=== PATIENT | male | born 1995 | race African-American/Black ===

== ENCOUNTER 2019-12-21 18:46 | Inpatient (IN) | payer SELFPAY ==
[~2019-12-21] VITALS: Ht 175.3 cm; Wt 98.4 kg
[~2019-12-21 18:46] MED LIST: Lidocaine 1% 10mg/ml/Epi 0.005mg/ml 30ml vial INJ ONE
--- NOTE | 2019-12-21 18:50 | NUR ---
ED Nurse Note: Pt brought in by ambulance from home and came in due to suicidal behavior with agitation. Per EMS, pt attempted to jump of from second floor story window. Patient cut his right forearm on the glass door and sutained a deep cut laceration on right forearm. Hx of depression. IM [id number] given by EMS. Pt came in very agitated and unable to follow commands. No respiratory distress. ERMD at the bed side.
[2019-12-21] MEDS ORDERED: Lidocaine 1% 10mg/ml/Epi 0.005mg/ml 30ml vial INJ ONE (18:56)
[2019-12-21 19:00] VITALS: BP 118/86
--- NOTE | 2019-12-21 19:13 | NUR ---
HAND-OFF: Report given to Mary Kate SIMMS.
[2019-12-21] MEDS ORDERED: Tetanus/Diptheria/Pertussis IM ONE (19:15)
[2019-12-21] MEDS ORDERED: ceFAZolin sod 1 GM in NS 55 ML IVPB ONE (19:15)
[2019-12-21 19:17] VITALS: BP 107/59
--- NOTE | 2019-12-21 20:28 | Diagnostic Imaging Report ---
ADDENDUM - Added by Kash Roberts DO on 12/21/2019 8:31 PM (-07:00) Addendum: Findings discussed forearm injury. 1. No radiopaque foreign body of the chest. 2. Increased airspace opacity of the upper lobes. This may be due to portable technique. Recommend dedicated frontal and lateral radiographs. EXAM: XR Chest, 1 View CLINICAL HISTORY: FB TECHNIQUE: Frontal view of the chest. COMPARISON: None available. FINDINGS: Lungs: Unremarkable. No consolidation. Pleural space: Unremarkable. No pneumothorax. Heart: Unremarkable. No cardiomegaly. Mediastinum: Unremarkable. Bones/joints: Unremarkable. Soft tissues: Soft tissue laceration overlying the dorsal mid forearm. There is cortical irregularity along the dorsal ulna at this location. There is no radiopaque foreign body. IMPRESSION: 1. Soft tissue laceration of the dorsal forearm with mild ulnar osseous cortical irregularity. 2. No radiopaque foreign body.
--- NOTE | 2019-12-21 20:33 | Diagnostic Imaging Report ---
EXAM: XR Right Forearm, 2 Views CLINICAL HISTORY: FB TECHNIQUE: Frontal and lateral views of the right forearm. COMPARISON: None. FINDINGS: Bones/joints: There is cortical irregularity along the dorsal ulna at this location. No dislocation. Soft tissues: Soft tissue laceration overlying the dorsal mid forearm. There is no radiopaque foreign body. IMPRESSION: 1. Soft tissue laceration of the dorsal forearm with subtle cortical irregularity of the adjacent ulnar cortex. 2. No radiopaque foreign body.
[2019-12-21 20:53] LABS: ANION GAP 12 mmol/L (5-15); BLOOD UREA NITROGEN 11 mg/dL (7-18); CARBON DIOXIDE 26 MMOL/L (21-32); CHLORIDE 105 MMOL/L (98-107); CREATININE 0.9 MG/DL (0.55-1.30); POTASSIUM 3.9 MMOL/L (3.5-5.1); SODIUM 143 MMOL/L (136-145)
[2019-12-21 20:57] LABS: ALANINE AMINOTRANSFERASE 25 U/L (12-78); ALBUMIN 3.6 G/DL (3.4-5.0); ALBUMIN/GLOBULIN RATIO 0.9 (1.0-2.7); ALKALINE PHOSPHATASE 54 U/L (46-116); ASPARTATE AMINO TRANSFERASE 25 U/L (15-37); BILIRUBIN,TOTAL 0.5 MG/DL (0.2-1.0); CREATINE KINASE 377 U/L (26-308)
[2019-12-21 21:00] LABS: HEMATOCRIT 42.4 % (42.0-52.0); MEAN CORPUSCULAR VOLUME 89 FL (80-99); PLATELET COUNT 232 K/UL (150-450); RED BLOOD COUNT 4.76 M/UL (4.70-6.10); RED CELL DISTRIBUTION WIDTH 13.6 % (11.6-14.8)
--- NOTE | 2019-12-21 21:00 | NUR ---
ED Nurse Note: Patient remains completely combative. Patient DC'd Iv at right hand. Will continue to monitor for restart.
[2019-12-21 21:03] LABS: WHITE BLOOD COUNT 19.9 K/UL (4.8-10.8)
[2019-12-21 21:04] LABS: BASOPHILS % (AUTO) 0.7 % (0.0-2.0); EOSINOPHILS % (AUTO) 0.4 % (0.0-3.0); LYMPHOCYTES % (AUTO) 6.5 % (20.0-45.0); MONOCYTES % (AUTO) 3.7 % (1.0-10.0); NEUTROPHILS % (AUTO) 88.8 % (45.0-75.0)
[2019-12-21] MEDS ORDERED: Haloperidol 5mg/ml Inj IM ONE (21:30)
[2019-12-21] MEDS ORDERED: LORazepam Inj 2mg/ml 1ml IM ONE (21:45)
[2019-12-21] MEDS ORDERED: DiphenhydrAMINE 50mg/ml Inj IM ONE (21:45)
--- NOTE | 2019-12-21 21:45 | NUR ---
ED Nurse Note: Patient completely uncooperative. Security called for assistance. Patient vebally threatened to hurt me and lunged at me during attempted IV start. ERMD informed of need for pharmaceutical restraints in effort to resume IV fluid hydration and repair of self inflicted damage.
--- NOTE | 2019-12-21 22:10 | NUR ---
ED Nurse Note: Security called to assist with medication administration. Patient mildly compliant for injections. Will continue to monitor level of consciousness for continuity of care.
[2019-12-21 22:16] VITALS: BP 110/62
[2019-12-21 23:12] LABS: APPEARANCE,URINE CLEAR; BILIRUBIN, URINE NEGATIVE (NEGATIVE); COLOR,URINE AMBER; GLUCOSE, URINE (UA) NEGATIVE (NEGATIVE); KETONES,URINE NEGATIVE (NEGATIVE); LEUKOCYTE ESTERASE ,URINE 1+ (NEGATIVE); NITRITE,URINE NEGATIVE (NEGATIVE); PH,URINE 5 (4.5-8.0); PROTEIN,URINE NEGATIVE (NEGATIVE); UROBILINOGEN,URINE NORMAL MG/DL (0.0-1.0)
--- NOTE | 2019-12-21 23:34 | NUR ---
ED Nurse Note: ERMd at bedside, for repair of patient's right forearm.
[2019-12-21 23:45] VITALS: BP 107/59
[2019-12-21] MEDS ORDERED: Bacitracin Oint UD TOPIC ONE (23:45)
--- NOTE | 2019-12-21 23:54 | NUR ---
ED Nurse Note: Rendered call back to patient's mom regarding patient's status and plan of care. Patient's mom is Tomasa and can be reached at [phone] for updates.
[2019-12-22] VITALS (7 sets, daily range): BP systolic 11–125; BP diastolic 62–72
--- NOTE | 2019-12-22 00:15 | NUR ---
ED Nurse Note: Bacitracin applied to sutured area and area wrapped with loose coban.
--- NOTE | 2019-12-22 00:24 | Emergency Room Report ---
History of Present Illness General Chief Complaint: Suicidal Source: Family Member, EMS Present Illness HPI The patient presents via EMS. Apparently he was going to jump out of a second story window to end his life however he cut his right forearm on the glass and did not jump. He was agitated and violent with paramedics so they restrained him police was involved and also they gave him 10 of Versed. Police are placing him on a 5150. His mom states that he has no prior psychiatric history but there is a family history of schizophrenia. Recently he has been acting more like his sister with schizophrenia. His birthday was yesterday and he drank alcohol and apparently did some marijuana. Tonight he threatened to take his girlfriend's Prozac but took a handful and then spat them all out. He then threatened to jump out of the second story window but ended up cutting his right forearm on broken glass. She states his hand could not straighten after the laceration. The patient is unable to answer questions at this time. 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[place] - has girlfriend Reviewed Nursing Documentation: PMH: Agreed; PSxH: Agreed Nursing Documentation-[facility] Past Medical History: No History, Except For History Of Psychiatric Problem: Yes - depression Review of Systems All Other Systems: limited Physical Exam Vital Signs Date Time Temp Pulse Resp B/P (MAP) Pulse Ox O2 Delivery O2 Flow Rate FiO2 12/21/19 18:40 99.0 120 14 107/59 (75) 95 Room Air Sp02 EP Interpretation: reviewed, abnormal - interpreted as slightly low General Appearance: non-toxic, lethargic - And intermittently striking out Head: normocephalic, atraumatic Eyes: bilateral eye PERRL, bilateral eye Scleral Injection ENT: moist mucus membranes Neck: full range of motion, supple Respiratory: lungs clear, normal breath sounds Cardiovascular #1: tachycardia Cardiovascular #2: 2+ radial (R) - good capillary fill Gastrointestinal: normal inspection, scaphoid Musculoskeletal: back normal, normal range of motion - except unable to raise right hand Neurologic: sensory intact, motor weakness - Right hand, responsive - to pain, protecting airway Psychiatric: other - alternating agitated and lethargic Skin: warm/dry, laceration - right dorsal forearm, deep Procedures Critical Care Time Critical Care Time Total Critical Care Time: 60 min bedside evaluation and treatment excludes procedures (EKG, laceration repair). Reason for critical care: Agitated delirium, limb threatening wound assessment for restraints, reassessment for sedation, consultation with hand specialist. Possible complications: hypotension, hypertension, NC, shock, arrhythmias, metabolic acidosis, end organ damage, respiratory failure. Interventions: Sedation, repeat evaluations, discussion with family, discussion with hand specialist, laceration repair Course: Patient brought by EMS and [employer] post suicide attempt with a right forearm laceration and agitated delirium. Immediate assessment for violent restraints. Wound bleeding controlled. Reassessment as patient with increased agitation and threatening staff. Sedation ordered. Reassessment post sedation. Discussion with family regarding history. Discussion with hand surgeon and general surgeon regarding wound. Ancef begun. Laceration irrigated and skin closed as a temporary measure. Patient admitted to the hospital for operative repair of right forearm injury and reassessment of suicidal gesture. Consultations: nursing staff, EMS, family, hand surgeon, security, admitting physician Performed by: Dr. Zee Tolerated well condition = serious Laceration/Wound Repair Laceration/Wound Repair : Consent: Emergent Wound Location: upper extremity Wound's Depth, Shape: into muscle, linear Wound Explored: clean Betadine Prep?: Yes Anesthesia: Lidocaine w/ Epi Wound Debrided: None Wound Repaired With: sutures Suture Size/Type: 3:0 Layer Closure?: No Sterile Dressing Applied?: Yes Splint Applied?: No Patient Tolerated: Well Complications: None Medical Decision Making Medical: Substance Abuse Behavioral: Other Reaction to Intervention: Escalated Behavior Restraint Reassesment I, Jesus Zee MD, have personally evaluated this patient. Laboratory tests have been reviewed and addressed accordingly. The patient is deemed to present a danger to themselves and/or others. This is based on the exam, history provided by EMS and [employer] and family and observed and reported behavior. Attempts for non-invasive measures have been considered and/or attempted, however, have been futile. It is in the best interest of the nursing staff, the patient, and others involved in this patient's care that behavioral restraints be applied. Patient evaluation reveals the following: Initially was started but then agitated, abusive but threatening to staff Diagnostic Impression: Primary Impression: Suicidal intent Additional Impressions: Laceration of forearm with tendon involvement Qualified Codes: S51.811A - Laceration without foreign body of right forearm, initial encounter; S56.921A - Laceration of unspecified muscles, fascia and tendons at forearm level, right arm, initial encounter Substance abuse ER Course Patient presents after suicide attempt with a laceration to the right forearm and after receiving 10 mg of Versed for agitated state. Differential includes acute intoxication, initial presentation of schizophrenia, suicidal gesture, forearm laceration with muscle and tendon involvement. Evaluation with chest x- ray, right forearm film and labs. Immediately the wound was assessed and lidocaine with epinephrine was infused after Betadine prep and bleeding was controlled with pressure. Patient threatening staff with violence and violent restraints applied. Ancef given. Patient threatening nursing staff and verbally abusive not responding to efforts to de-escalate. This is while he was restrained. Sedation increased. Dr. Oneil states will take patient to the operating room in the morning to repair tendons and muscles of the right forearm. He requested that I close the skin after irrigating the wound. See procedure note. After sedation patient more calm, and cooperative. Patient admitted to the hospital for operative repair of right forearm laceration. Laboratory Tests Test 12/21/19 20:20 12/21/19 23:00 White Blood Count 19.9 K/UL (4.8-10.8) H Red Blood Count 4.76 M/UL (4.70-6.10) Hemoglobin 14.0 G/DL (14.2-18.0) L Hematocrit 42.4 % (42.0-52.0) Mean Corpuscular Volume 89 FL (80-99) Mean Corpuscular Hemoglobin 29.4 PG (27.0-31.0) Mean Corpuscular Hemoglobin Concent 33.1 G/DL (32.0-36.0) Red Cell Distribution Width 13.6 % (11.6-14.8) Platelet Count 232 K/UL (150-450) Mean Platelet Volume 7.2 FL (6.5-10.1) Neutrophils (%) (Auto) 88.8 % (45.0-75.0) H Lymphocytes (%) (Auto) 6.5 % (20.0-45.0) L Monocytes (%) (Auto) 3.7 % (1.0-10.0) Eosinophils (%) (Auto) 0.4 % (0.0-3.0) Basophils (%) (Auto) 0.7 % (0.0-2.0) Sodium Level 143 MMOL/L (136-145) Potassium Level 3.9 MMOL/L (3.5-5.1) Chloride Level 105 MMOL/L (98-107) Carbon Dioxide Level 26 MMOL/L (21-32) Anion Gap 12 mmol/L (5-15) Blood Urea Nitrogen 11 mg/dL (7-18) Creatinine 0.9 MG/DL (0.55-1.30) Estimated Glomerular Filtration Rate > 60 mL/min (>60) Glucose Level 103 MG/DL (74-106) Calcium Level 9.0 MG/DL (8.5-10.1) Total Bilirubin 0.5 MG/DL (0.2-1.0) Aspartate Amino Transferase (AST) 25 U/L (15-37) Alanine Aminotransferase (ALT) 25 U/L (12-78) Alkaline Phosphatase 54 U/L (46-116) Total Creatine Kinase 377 U/L (26-308) H Total Protein 7.5 G/DL (6.4-8.2) Albumin 3.6 G/DL (3.4-5.0) Globulin 3.9 g/dL Albumin/Globulin Ratio 0.9 (1.0-2.7) L Salicylates Level 2.5 ug/mL (2.8-20) L Acetaminophen Level < 2 MCG/ML (10-30) L Serum Alcohol 214 mg/dL Urine Color Vivienne Urine Appearance Clear Urine pH 5 (4.5-8.0) Urine Specific [place] 1.025 (1.005-1.035) Urine Protein Negative (NEGATIVE) Urine Glucose (UA) Negative (NEGATIVE) Urine Ketones Negative (NEGATIVE) Urine Blood Negative (NEGATIVE) Urine Nitrite Negative (NEGATIVE) Urine Bilirubin Negative (NEGATIVE) Urine Ictotest Negative (NEGATIVE) Urine Urobilinogen Normal MG/DL (0.0-1.0) Urine Leukocyte Esterase 1+ (NEGATIVE) H Urine RBC 0 /HPF (0 - 0) Urine WBC 5-10 /HPF (0 - 0) H Urine Squamous Epithelial Cells Occasional /LPF Urine Bacteria Few /HPF (NONE) Urine Mucus Few /LPF (NONE/OCC) H Urine Opiates Screen Negative (NEGATIVE) Urine Barbiturates Screen Negative (NEGATIVE) Phencyclidine (PCP) Screen Negative (NEGATIVE) Urine Amphetamines Screen Negative (NEGATIVE) Urine Benzodiazepines Screen Positive (NEGATIVE) H Urine Cocaine Screen Negative (NEGATIVE) Urine Marijuana (THC) Screen Positive (NEGATIVE) H Microbiology Date/Time Source Procedure Growth Status 12/21/19 20:30 Nasopharynx SARS-CoV-2 RdRp Gene Assay - Final Complete Chest X-Ray Diagnostic Results Chest X-Ray Diagnostic Results : Chest X-Ray Ordered: Yes # of Views/Limited/Complete: 1 View Indication: Other EP Interpretation: Yes Interpretation: no consolidation, no effusion, no pneumothorax Impression: No acute disease Electronically Signed by: Electronically signed by Jesus Zee MD Other X-Ray Diagnostic Results Other X-Ray Diagnostic Results : X-Ray ordered: R forearm # of Views/Limited Vs Complete: 2 View Indication: Other EP Interpretation: Yes Interpretation: no dislocation, no soft tissue swelling, no fractures, other - ST defect no foregn bodies Impression: Other Electronically Signed by: Electronically signed by Jesus Zee MD Last Vital Signs Date Time Temp Pulse Resp B/P (MAP) Pulse Ox O2 Delivery O2 Flow Rate FiO2 12/21/19 22:20 120 14 107/59 95 12/21/19 19:17 99.0 Room Air Status: improved Disposition: ADMITTED INPATIENT Condition: Serious Scripts Unable to Obtain Active Prescriptions or Reported Meds Referrals: NOT CHOSEN IPA/,REFERRING (PCP) Jesus Zee MD Dec 22, 2019 00:24
--- NOTE | 2019-12-22 00:55 | NUR ---
ED Nurse Note: Patient sleeping soundly, provided with warm blankets. Will continue to monitor.
--- NOTE | 2019-12-22 01:55 | NUR ---
ED Nurse Note: Patient sleeping soundly with no s/s of acute distress. Will continue to monitor.
--- NOTE | 2019-12-22 03:05 | NUR ---
ED Nurse Note: Patient sleeping soundly, vital sign updated.
--- NOTE | 2019-12-22 04:05 | NUR ---
ED Nurse Note: Patient remains asleep with no s/s of acute distress. Will continue to monitor for wakefulness.
--- NOTE | 2019-12-22 05:05 | NUR ---
ED Nurse Note: Patient is awake, alert, oriented and cooperative. Patient able to ambulate to the restroom to clean himself up. Patient provided with clean gown and clean bedding. Patient also provided with warm blankets. Will continue to monitor.
--- NOTE | 2019-12-22 07:00 | NUR ---
HAND-OFF: Report given to Sherie SIMMS. Patient vital signs updated. Patient is full cooperative with no s/s of aggression.
--- NOTE | 2019-12-22 07:11 | NUR ---
ED Nurse Note: Report received from MENDEZ Hartmann. Pt is lying comfortably in semi-fowlers with no signs of distress. A+Ox4, calm and cooperative. Respirations even and unlabored on room air. All vitals stable as documented. Pt to be transferred to after 0730. Denies SI/HI at this time.
--- NOTE | 2019-12-22 07:51 | NUR ---
ED Nurse Note: Report given to MENDEZ Sainz on 3E
--- NOTE | 2019-12-22 08:05 | NUR ---
ED Nurse Note: Pt transferred safely to 3E.
--- NOTE | 2019-12-22 08:15 | NUR ---
NURSE NOTES: Received report from Sherie SIMMS, pt a/a/o x4 laying in bed with no signs of distress or other issues at this time. pt has a laceration in the right hand covered with 4x4 and Tegaderm. per report ER MD suture wound. IV on the right FA gauge #20 running NS @75ml/hr. RN will contact MD to get admission orders and will carry on as indicated. call light within reach, bed in lowest position, side rales up x2. I will f/u as needed. - Seated in place due to previous suicidal attempt, pt stated that doesn't thought of hurting him self or other at this time.
[2019-12-22] MEDS ORDERED: HYDROcodone/Acetamin 5/325 tab ORAL PRN (09:30)
[2019-12-22] MEDS ORDERED: LORazepam 1mg tab ORAL PRN (09:30)
--- NOTE | 2019-12-22 09:40 | History and Physical ---
History of Present Illness General Date patient seen: Dec 22, 2019 Time patient seen: 07:20 Reason for Hospitalization: SuicidalLaceration of the upper extremity Present Illness HPI Patient is a 24 YO M with no PMHx presenting with R. forearm laceration after attempting to suicide. Pt reluctant to talk about the incident ; however reportedly he was going to jump out of a second story window to ended his life but he cut his right forearm on the glass and did not jump. Patient denies an prior hx of suicidal attempts. Pt endorses use of Marijuana but no other illicit. He complains of pain and mild burning sensation in the dorsum of his right hand. He also complains of difficulty making a fist but denies any paraesthesia or tingling. Denies any CP, SOB, N/V/D/F or chills. On arrival to the ED, patient was found to be agitated and threatening the medical staff. He has been placed on 5150 and admitted for further medical/ surgical management. Allergies: Coded Allergies: No Known Allergies (Unverified , 12/21/19) COVID-19 Screening Contact w/high risk pt: No Experienced COVID-19 symptoms?: No Medication History Unable to Obtain Active Prescriptions or Reported Meds Patient History Healthcare decision maker Resuscitation status Advanced Directive on File Review of Systems All Other Systems: negative except mentioned in HPI Physical Exam General Appearance: no apparent distress, alert Lines, tubes and drains: peripheral HEENT: normocephalic, atraumatic Neck: non-tender, normal inspection Respiratory/Chest: chest wall non-tender, lungs clear, no accessory muscle use Cardiovascular/Chest: normal peripheral pulses, normal rate, regular rhythm Abdomen: normal bowel sounds, soft, no organomegaly Extremities: other - Right hand dressing intact, clearn and dry. pulses intact ; physical exam negative for loss of sensation to the right hand. Limited ROM of the right hand due to pain. Skin Exam: normal pigmentation Neurologic: oriented x 3 Last 24 Hour Vital Signs Date Time Temp Pulse Resp B/P (MAP) Pulse Ox O2 Delivery O2 Flow Rate FiO2 12/22/19 08:05 98.1 68 18 124/72 97 Room Air 12/22/19 07:01 98.4 60 17 118/68 96 Room Air 12/22/19 05:05 99.0 86 15 111/72 98 Room Air 12/22/19 03:05 99.0 87 16 110/65 97 Room Air 12/22/19 00:45 98.7 83 16 108/63 96 Room Air 12/22/19 00:30 97 18 96 Room Air 12/22/19 00:15 95 16 96 Room Air 12/21/19 23:45 120 14 95 Room Air 12/21/19 22:20 120 14 107/59 95 12/21/19 22:16 99.0 86 17 110/62 98 Room Air 12/21/19 21:50 120 14 107/59 95 12/21/19 19:17 99.0 14 107/59 95 Room Air 12/21/19 19:00 90 20 98 Room Air 12/21/19 18:50 120 14 Room Air 12/21/19 18:40 99.0 120 14 107/59 (75) 95 Room Air Intake and Output 12/21/19 12/22/19 19:00 07:00 Intake Total 0 ml Balance 0 ml Intake Oral 0 ml Laboratory Tests Test 12/21/19 20:20 12/21/19 23:00 White Blood Count 19.9 K/UL (4.8-10.8) H Red Blood Count 4.76 M/UL (4.70-6.10) Hemoglobin 14.0 G/DL (14.2-18.0) L Hematocrit 42.4 % (42.0-52.0) Mean Corpuscular Volume 89 FL (80-99) Mean Corpuscular Hemoglobin 29.4 PG (27.0-31.0) Mean Corpuscular Hemoglobin Concent 33.1 G/DL (32.0-36.0) Red Cell Distribution Width 13.6 % (11.6-14.8) Platelet Count 232 K/UL (150-450) Mean Platelet Volume 7.2 FL (6.5-10.1) Neutrophils (%) (Auto) 88.8 % (45.0-75.0) H Lymphocytes (%) (Auto) 6.5 % (20.0-45.0) L Monocytes (%) (Auto) 3.7 % (1.0-10.0) Eosinophils (%) (Auto) 0.4 % (0.0-3.0) Basophils (%) (Auto) 0.7 % (0.0-2.0) Sodium Level 143 MMOL/L (136-145) Potassium Level 3.9 MMOL/L (3.5-5.1) Chloride Level 105 MMOL/L (98-107) Carbon Dioxide Level 26 MMOL/L (21-32) Anion Gap 12 mmol/L (5-15) Blood Urea Nitrogen 11 mg/dL (7-18) Creatinine 0.9 MG/DL (0.55-1.30) Estimat Glomerular Filtration Rate > 60 mL/min (>60) Glucose Level 103 MG/DL (74-106) Calcium Level 9.0 MG/DL (8.5-10.1) Total Bilirubin 0.5 MG/DL (0.2-1.0) Aspartate Amino Transf (AST/SGOT) 25 U/L (15-37) Alanine Aminotransferase (ALT/SGPT) 25 U/L (12-78) Alkaline Phosphatase 54 U/L (46-116) Total Creatine Kinase 377 U/L (26-308) H Total Protein 7.5 G/DL (6.4-8.2) Albumin 3.6 G/DL (3.4-5.0) Globulin 3.9 g/dL Albumin/Globulin Ratio 0.9 (1.0-2.7) L Salicylates Level 2.5 ug/mL (2.8-20) L Acetaminophen Level < 2 MCG/ML (10-30) L Serum Alcohol 214 mg/dL Urine Color Vivienne Urine Appearance Clear Urine pH 5 (4.5-8.0) Urine Specific [place] 1.025 (1.005-1.035) Urine Protein Negative (NEGATIVE) Urine Glucose (UA) Negative (NEGATIVE) Urine Ketones Negative (NEGATIVE) Urine Blood Negative (NEGATIVE) Urine Nitrite Negative (NEGATIVE) Urine Bilirubin Negative (NEGATIVE) Urine Ictotest Negative (NEGATIVE) Urine Urobilinogen Normal MG/DL (0.0-1.0) Urine Leukocyte Esterase 1+ (NEGATIVE) H Urine RBC 0 /HPF (0 - 0) Urine WBC 5-10 /HPF (0 - 0) H Urine Squamous Epithelial Cells Occasional /LPF Urine Bacteria Few /HPF (NONE) Urine Mucus Few /LPF (NONE/OCC) H Urine Opiates Screen Negative (NEGATIVE) Urine Barbiturates Screen Negative (NEGATIVE) Phencyclidine (PCP) Screen Negative (NEGATIVE) Urine Amphetamines Screen Negative (NEGATIVE) Urine Benzodiazepines Screen Positive (NEGATIVE) H Urine Cocaine Screen Negative (NEGATIVE) Urine Marijuana (THC) Screen Positive (NEGATIVE) H Microbiology Date/Time Source Procedure Growth Status 12/21/19 20:30 Nasopharynx SARS-CoV-2 RdRp Gene Assay - Final Complete Height (Feet): 6 Weight (Pounds): 220 Medications Current Medications Medications (Trade) Dose Ordered Sig/Sary Route PRN Reason Start Time Stop Time Status Last Admin Dose Admin Nicotine (Nicoderm) 1 patch Q24H TDERMAL 12/22/19 10:00 03/21/20 09:59 Sodium Chloride 1,000 ml @ 300 mls/hr Q3H20M IV 12/21/19 19:15 01/20/20 19:14 12/22/19 05:31 Sodium Chloride 1,000 ml @ 300 mls/hr Q3H20M IV 12/21/19 23:45 01/20/20 23:44 12/22/19 06:25 Assessment/Plan Assessment/Plan: 24 YO M with no prior medical medical hx presenting with laceration to the right hand after cutting his right forearm on a glass in a suicidal attempt. Laceration of R. Forearm with tendon involvement: -s/p suture in the ED. -TdaP vaccination. -continue with current wound care. -PRN PO analgesics for pain control -Keep NPO except sips with meds -Avoid antithrombotics. -Dr. Oneil consulted by the ED - Possible operative managemetn. Apprecicate the follow up. -Keflex 1G IV One hour prior to OR. Suicidal Intent: Polysubstance abuse -Currently on 5150 -Sitter at the bedside. -Utox + for benzo and Marijuana -Psych consult. Appreciate further input. Leukocytosis -likely reactive to the trauma -No signs of infection. -follow wound cultures. -Continue to trend Vijay Almonte MD. [facility]. Vijay Almonte M.D. Dec 22, 2019 09:40
--- NOTE | 2019-12-22 10:31 | NUR ---
[employer]OL[employer] PROFESSIONAL NOTE SW received psych/suicide attempt consult. SW met w/ pt and assessed pt. Pt presents as A&O4x and cooperative. Pt reports he heavily drank hard liquor w/ his girlfriend that he does not recall if he stated that he wanted to jump off from the second floor. Pt currently denies SI. Pt denies having hx of SI. RUDS positive for Benzo and THC. Pt admits THC abuse. PT declined counseling/tx intervention/resource on substance abuse. Pt has hx of Depression and he does not receive outpatient tx. Pt does not consider outpatient mental health service at this time. PT also declined mental health resource. PT verbalized he will be safe when returning to the community. This SW believes pt is not danger to self. No concern/needs expressed by pt. Addendum: 12/22/19 at 1049 by JOHN BRYANT Emergency contact: Tomasa Knowles (mother) [phone]
--- NOTE | 2019-12-22 15:33 | NUR ---
CASE MANAGEMENT:INITIAL REVIEW 24 YR OLD MALE BIBA FROM HOME CC;SUICIDAL INTENT. SI;SUICIDAL INTENT. SUBSTANCE ABUSE. LACERATION OF FOREARM WITH TENDON INVOLVEMENT 99.0 120 20 107/59 95% ON RA WBC 19.9 TCK 377 US+ LEUKOCYTE ESTERASE, WBC, MUCUS URINE TOX (+) BENZODIAZEPINES, THC COVID RAPID ~ NEGATIVE FOREARM XRAY ~ 1. Soft tissue laceration of the dorsal forearm with subtle cortical irregularity of the adjacent ulnar cortex. 2. No radiopaque foreign body. CXR ~ 1. No radiopaque foreign body of the chest. 2. Increased airspace opacity of the upper lobes. This may be due to portable technique. Recommend dedicated frontal and lateral radiographs. IS;ANCEF IV ONCE TDAP IM ONCE IVF NS BOLUS HALDOL IM ATIVAN IM BENADRYL IM BACITRACIN TOP SUTURE OF LACERATION ADMITTED TO MED SURG MED SURG STATUS DCP;FROM HOME PLAN; NPO POSSIBLE SURGERY TO R FOREARM
--- NOTE | 2019-12-22 20:01 | NUR ---
NURSE HAND-OFF: Important Events on Shift: Patient Status: full code Diet: NPO Pending Orders: [] Pending Results/Labs: Pending MD notification:[awaiting for surgeon opinion for FA wound Latest Vital Signs: Temperature 98.1 , Pulse 68 , B/P 124 /72 , Respiratory Rate 18 , O2 SAT 97 , Room Air, O2 Flow Rate . Vital Sign Comment: stable Latest Dooley Fall Score: 35 Fall Risk: Medium Risk Safety Measures: Call light Within Reach, Bed Alarm Zone 1, Side Rails Side Rails x2, Bed position Low and Locked. Fall Precautions: need assistance/supervision Yellow Socks Patient Fall Education Report given to Sonido SIMMS, pt in stable condition. - Dr. Limon cleared patient for d/c and d/c seater. - awaiting for Plastic surgeon opinion for FA wound.
[2019-12-23] VITALS (11 sets, daily range): BP systolic 107–148; BP diastolic 37–81
--- NOTE | 2019-12-23 02:00 | Consultation ---
DATE OF CONSULTATION: 12/22/2019 CONSULTING PHYSICIAN: Umair Limon M.D. HISTORY OF PRESENT ILLNESS: This is a 24-year-old male with a history of cannabis dependence, anxiety disorder, depression, who has been admitted to the hospital for medical stabilization. The patient attempted suicide by attempting to cut himself and overdose on his benzodiazepine. It is unclear whether he attempted suicide or he was threatening. The patient is minimizing his symptoms. He stated that he psychosocial stressors recently including quitting his job. The patient stated that he has anxiety, depression, however, self-medicating himself with . He was reluctant to be on psychotropic medication. The patient has been placed on a 5150 when he brought into the emergency room. He has episodes of anger. He is denying any suicidal or homicidal ideation. No psychotic symptoms noted. PAST PSYCHIATRIC HISTORY: Significant for anxiety, depression, possible bipolar disorder. PAST MEDICAL HISTORY: Nonsignificant. ALLERGIES: No known drug allergies. SUBSTANCE ABUSE HISTORY: Significant for cannabis. His toxicology is positive for benzodiazepine as well as cannabis. He stated that he thought the benzodiazepines 01:50 from his sister. MENTAL STATUS EXAMINATION: Alert and oriented times self, place, situation, and date. Mood is euthymic. Affect is full range, congruent with mood. Thought process, linear and goal oriented. Thought content, there is no suicidal or homicidal ideation. Cognition is intact. Insight and judgment is fair. ASSESSMENT: Williamson I Major depressive disorder. Cannabis dependence. Williamson II Deferred. Williamson III As above. Williamson IV Low. Williamson V 20. PLAN: 1. The patient is not an imminent danger to self or others. 2. DC the sitter. 3. The patient will benefit from psychotropic medication. Follow up with a psychiatrist. 4. Provide the patient with reality orientation and supportive therapy. Umair Limon M.D. DR: JENNIFER JOB#: [id number] CC:
--- NOTE | 2019-12-23 06:39 | NUR ---
NURSE HAND-OFF: Important Events on Shift:no significant events during shift, pt was sleeping Patient Status: Stable Diet: NPO Pending Orders: Pending Results/Labs:[] Pending MD notification:[] Latest Vital Signs: Temperature 98.0 , Pulse 64 , B/P 123 /70 , Respiratory Rate 20 , O2 SAT 99 , Room Air, O2 Flow Rate . Vital Sign Comment: [] Latest Dooley Fall Score: 35 Fall Risk: Medium Risk Safety Measures: Call light Within Reach, Bed Alarm Zone 1, Side Rails Side Rails x2, Bed position Low and Locked. Fall Precautions: Patient Fall Education Report given to ANDREE SIMMS
[2019-12-23 06:44] LABS: ANION GAP 8 mmol/L (5-15); BLOOD UREA NITROGEN 8 mg/dL (7-18); CALCIUM 8.7 MG/DL (8.5-10.1); CARBON DIOXIDE 27 MMOL/L (21-32); CHLORIDE 105 MMOL/L (98-107); CREATININE 0.8 MG/DL (0.55-1.30); POTASSIUM 4.3 MMOL/L (3.5-5.1); SODIUM 140 MMOL/L (136-145)
[2019-12-23 06:45] LABS: BASOPHILS % (AUTO) 0.5 % (0.0-2.0); EOSINOPHILS % (AUTO) 1.1 % (0.0-3.0); HEMATOCRIT 42.6 % (42.0-52.0); HEMOGLOBIN 13.6 G/DL (14.2-18.0); LYMPHOCYTES % (AUTO) 19.6 % (20.0-45.0); MEAN CORPUSCULAR VOLUME 88 FL (80-99); MONOCYTES % (AUTO) 6.7 % (1.0-10.0); NEUTROPHILS % (AUTO) 72.1 % (45.0-75.0); PLATELET COUNT 224 K/UL (150-450); RED BLOOD COUNT 4.84 M/UL (4.70-6.10); RED CELL DISTRIBUTION WIDTH 12.8 % (11.6-14.8); WHITE BLOOD COUNT 8.7 K/UL (4.8-10.8)
--- NOTE | 2019-12-23 07:20 | NUR ---
NURSE NOTES: Handoff received from Sonido SIMMS. Patient is asleep, no signs of distress noted. Breathing is even and unlabored on room air. Patient has a right forearm dressing, 4x4, telfa, and sutures which is slightly stained. Right forearm Iv is patent and asymptomatic, running IVF as ordered. Bed is low and locked, side rails up x2, call light is within reach.
--- NOTE | 2019-12-23 07:47 | General Progress Note ---
Assessment/Plan Assessment/Plan: 24 YO M with no prior medical medical hx presenting with laceration to the right hand after cutting his right forearm on a glass in a suicidal attempt. Laceration of R. Forearm with tendon involvement: -s/p suture in the ED. -s/p TdaP vaccination. -continue with current wound care. -PRN PO analgesics for pain control -Keep NPO except sips with meds -Avoid antithrombotics. -Keflex 1G IV One hour prior to OR. -Dr. Heredia consulted for wound care -d/w plastic sx, Dr. Oneil - Possible operative management. Apprecicate recs. Pre-op Mets>4, no hx [place], CVA, pt able to ambulate several blocks without CP/SOB. Given above assessment, patient is at low risk for a intermediate risk noncardiac surgery. ?Suicidal Intent: Polysubstance abuse -pt with no suicidal/homicidal ideation at this time -d/c Sitter per psych -Utox + for benzo and Marijuana -Psych consult. Appreciate further input. Leukocytosis - resolved -likely reactive to the trauma -No signs of infection. -follow wound cultures. -Continue to trend DVT PPx: SCDs, encourage ambulation Time spent on encounter: 36 mins, 26 on counseling, coordination of care. D/w RN , plastic sx and general sx. Time of note doesn't reflect time of encounter. Subjective Allergies: Coded Allergies: No Known Allergies (Unverified , 12/21/19) Subjective No acute events overnight. Pt notes mild pain in RUE forearm. Pt currently denies any SI/HI ideation. Objective Last 24 Hour Vital Signs Date Time Temp Pulse Resp B/P (MAP) Pulse Ox O2 Delivery O2 Flow Rate FiO2 12/23/19 04:00 98.0 64 20 123/70 (87) 99 12/22/19 21:00 Room Air 12/22/19 20:00 98.4 62 20 125/64 (84) 99 12/22/19 09:09 Room Air 12/22/19 08:05 98.1 68 18 124/72 97 Room Air Intake and Output 12/22/19 12/23/19 19:00 07:00 # Voids 3 Laboratory Tests 12/23/19 04:50: White Blood Count 8.7#, Red Blood Count 4.84, Hemoglobin 13.6L, Hematocrit 42.6 , Mean Corpuscular Volume 88, Mean Corpuscular Hemoglobin 28.1, Mean Corpuscular Hemoglobin Concent 31.9L, Red Cell Distribution Width 12.8, Platelet Count 224, Mean Platelet Volume 7.3, Neutrophils (%) (Auto) 72.1, Lymphocytes (%) (Auto) 19.6L, Monocytes (%) (Auto) 6.7, Eosinophils (%) (Auto) 1.1, Basophils (%) (Auto) 0.5, Sodium Level 140, Potassium Level 4.3, Chloride Level 105, Carbon Dioxide Level 27, Anion Gap 8, Blood Urea Nitrogen 8, Creatinine 0.8, Estimat Glomerular Filtration Rate > 60, Glucose Level 88, Calcium Level 8.7 Height (Feet): 5 Height (Inches): 9.00 Weight (Pounds): 218 Objective General Appearance: no apparent distress, alert, sitting up in bed comfortably Lines, tubes and drains: peripheral HEENT: normocephalic, atraumatic Neck: non-tender, normal inspection Respiratory/Chest: chest wall non-tender, lungs clear, no accessory muscle use Cardiovascular/Chest: normal peripheral pulses, normal rate, regular rhythm Abdomen: normal bowel sounds, soft, no organomegaly Extremities: Right hand dressing intact, clean and dry, blood noted on gauze. pulses intact; no loss of sensation to the right hand. Limited ROM of the right hand due to pain. Skin Exam: normal pigmentation Neurologic: oriented x 3 Cristo Boone M.D. Dec 23, 2019 07:46
[2019-12-23 08:29] LABS: CREATINE KINASE 835 U/L (26-308)
[2019-12-23] MEDS ORDERED: Sterile Water Irrig 1000ml IRRIG ONE (12:30)
[2019-12-23] MEDS ORDERED: LR 1000ml ONE (12:30)
[2019-12-23] MEDS ORDERED: NS Irrig 1000ml ONE (12:30)
[2019-12-23] MEDS ORDERED: Bupivacaine w/Epi 0.5% 30ml Vial INJ ONE (12:41)
[2019-12-23] MEDS ORDERED: Bacitracin Oint 15gm Tube TOPIC ONE (12:41)
[2019-12-23] MEDS ORDERED: Lidocaine 1% 10mg/ml/Epi 0.005mg/ml 30ml vial INJ ONE (12:41)
[2019-12-23] MEDS ORDERED: Bacitracin 50000 Units Vial ONE (12:42)
[2019-12-23] MEDS ORDERED: Midazolam 2mg/2ml Inj ONE (12:45)
[2019-12-23] MEDS ORDERED: Morphine Sulfate 10mg/ml Inj ONE (12:46)
--- NOTE | 2019-12-23 12:54 | Pre-Procedure Note/Attestation ---
Pre-Procedure Note/Attestation Complete Prior to Procedure Planned Procedure: right Procedure Narrative: Right forearm exploration, repair of laceration, muscle and possible tendons. Attestation I attest that I discussed the nature of the procedure; its benefits; risks and complications; and alternatives (and the risks and benefits of such alternatives ), prior to the procedure, with the patient (or the patient's legal scheduling representative). I attest that, if there was a reasonable possibility of needing a blood transfusion, the patient (or the patient's legal scheduling representative) was given the [facility] standardized written summary, pursuant to the Hammad [place] Blood Safety Act ([place] Health and Safety Code # 1645, as amended). I attest that I re-evaluated the patient just prior to the surgery and that there has been no change in the patient's H&P, except as documented below: Raffaele Oneil MD Dec 23, 2019 12:54
[2019-12-23] MEDS ORDERED: Lidocaine 1% MPF 10mg/ml 5ml ONE (13:14)
[2019-12-23] MEDS ORDERED: Metoclopramide 10mg/2ml Inj ONE (13:14)
--- NOTE | 2019-12-23 14:00 | Brief Operative Note ---
Immediate Post Operative Note Operative Note Chief Complaint: Right arm laceration Pre-op Diagnosis: Right forearm laceration Procedure: Right forearm exploration, laceration repair, repair of extensor muscles and tendons. Post-op Diagnosis: same as pre-op Findings: other - 5 cm laceration of the right dorsal mid forearm, with transection of extensor muscle bellies and tendonous fasica Surgeon: Raffaele Oneil MD Occupational Therapy Instructor: None Additional Surgeons: None Anesthesia: general Specimen: none Complications: none Condition: stable Fluids: see anesthesia records Estimated Blood Loss: minimal Drains: none Implant(s) used?: No Raffaele Oneil MD Dec 23, 2019 14:00
--- NOTE | 2019-12-23 14:02 | Immediate Post-Op Evaluation ---
Immediate Post-Op Evalulation Immediate Post-Op Evalulation Procedure: right forearm laceration exploration Date of Evaluation: Dec 23, 2019 Time of Evaluation: 14:02 IV Fluids: 800 Blood Pressure Systolic: 115 Blood Pressure Diastolic: 40 Pulse Rate: 71 Respiratory Rate: 14 O2 Sat by Pulse Oximetry: 100 Temperature (Fahrenheit): 97.9 Nausea: No Vomiting: No Complications none Patient Status: awake, reacts, patent Hydration Status: adequate Drug: ancef Given Within 1 Hr of Incision: Yes Time Given: 12:55 Chloe Pérez CRNA Dec 23, 2019 14:02
--- NOTE | 2019-12-23 14:05 | Anethesia Preoperative Eval ---
Anesthesia Pre-op PMH/ROS General Date of Evaluation: Dec 23, 2019 Time of Evaluation: 12:40 Anesthesiologist: rene ASA Score: ASA 2 Mallampati Score Class I : Soft palate, uvula, fauces, pillars visible Class II: Soft palate, uvula, fauces visible Class III: Soft palate, base of uvula visible Class IV: Only hard plate visible Mallampati Classification: Class II Surgeon: Thad Diagnosis: Forearm laceration Surgical Procedure: Right forearm laceration exploration Anesthesia History: none Social History: smoking, current smoker, alcohol use Family History: no anesthesia problems Allergies: Coded Allergies: No Known Allergies (Unverified , 12/21/19) Medications: see eMAR Patient NPO?: Yes NPO Date: Dec 23, 2019 NPO Time: 04:00 Past Medical History Cardiovascular: Denies: HTN, CAD, [place], valve dz, arrhythmia, other Pulmonary: Denies: asthma, COPD, MIS, other Gastrointestinal/Genitourinary: Denies: GERD, CRI, ESRD, other Neurologic/Psychiatric: Reports: depression/anxiety; Denies: dementia, CVA, TIA, other Endocrine: Denies: DM, hypothyroidism, steroids, other HEENT: Denies: cataract (L), cataract (R), glaucoma, LUMBEE (L), LUMBEE (R), other Hematology/Immune: Denies: anemia, DVT, bleeding disorder, other Musculoskeletal/Integumentary: Denies: OA, RA, DJD, DDD, edema, other PSxH Narrative: none Anesthesia Pre-op Phys. Exam Physician Exam Last Vital Signs Date Time Temp Pulse Resp B/P (MAP) Pulse Ox O2 Delivery O2 Flow Rate FiO2 12/23/19 12:00 97.9 68 20 148/80 (102) 99 12/22/19 21:00 Room Air Constitutional: NAD Neurologic: CN 2-12 intact Cardiovascular: RRR Respiratory: CTA Gastrointestinal: S/NT/ND Airway Exam Mallampati Classification 2 Mallampati Score: Class II MO: full ROM: full Dentures: no upper, no lower Anesthesia Pre-op A/P Labs Hematology Test 12/23/19 04:50 White Blood Count 8.7 K/UL (4.8-10.8) # Red Blood Count 4.84 M/UL (4.70-6.10) Hemoglobin 13.6 G/DL (14.2-18.0) L Hematocrit 42.6 % (42.0-52.0) Mean Corpuscular Volume 88 FL (80-99) Mean Corpuscular Hemoglobin 28.1 PG (27.0-31.0) Mean Corpuscular Hemoglobin Concent 31.9 G/DL (32.0-36.0) L Red Cell Distribution Width 12.8 % (11.6-14.8) Platelet Count 224 K/UL (150-450) Mean Platelet Volume 7.3 FL (6.5-10.1) Neutrophils (%) (Auto) 72.1 % (45.0-75.0) Lymphocytes (%) (Auto) 19.6 % (20.0-45.0) L Monocytes (%) (Auto) 6.7 % (1.0-10.0) Eosinophils (%) (Auto) 1.1 % (0.0-3.0) Basophils (%) (Auto) 0.5 % (0.0-2.0) Chemistry Test 12/23/19 04:50 Sodium Level 140 MMOL/L (136-145) Potassium Level 4.3 MMOL/L (3.5-5.1) Chloride Level 105 MMOL/L (98-107) Carbon Dioxide Level 27 MMOL/L (21-32) Anion Gap 8 mmol/L (5-15) Blood Urea Nitrogen 8 mg/dL (7-18) Creatinine 0.8 MG/DL (0.55-1.30) Estimat Glomerular Filtration Rate > 60 mL/min (>60) Glucose Level 88 MG/DL (74-106) Calcium Level 8.7 MG/DL (8.5-10.1) Total Creatine Kinase 835 U/L (26-308) H Studies Pre-op Studies: EKG - sr Risk Assessment & Plan Assessment: covid neg Plan: General Status Change Before Surgery: No Pre-Antibiotics Drug: ancef Given Within 1 Hr of Incision: Yes Time Given: 12:55 Chloe Pérez CRNA Dec 23, 2019 14:04
--- NOTE | 2019-12-23 14:09 | 48 Hour Post Anesthesia Eval ---
Post Anesthesia Evaluation Procedure: right forearm laceration exploration Date of Evaluation: Dec 23, 2019 Time of Evaluation: 14:08 Blood Pressure Systolic: 119 0: 61 Pulse Rate: 69 Respiratory Rate: 14 O2 Sat by Pulse Oximetry: 100 Airway: patent Nausea: No Vomiting: No Hydration Status: adequate Cardiopulmonary Status: stable Mental Status/LOC: patient returned to baseline Follow-up Care/Observations: na Post-Anesthesia Complications: none Follow-up care needed: N/A Chloe Pérez CRNA Dec 23, 2019 14:09
[2019-12-23] MEDS ORDERED: fentaNYL 100 mcg/2 mL IV PRN (14:15)
--- NOTE | 2019-12-23 14:24 | Discharge Summary ---
Discharge Summary Hospital Course Date of Admission Dec 21, 2019 at 21:05 Date of Discharge 12/23/2019 Admitting Diagnosis forearm laceration HPI Kaushik Hartman is a 24 year old male who was admitted on Dec 21, 2019 at 21:05 for Forearm Laceration Hospital Course 24 YO M with no prior medical medical hx presenting with laceration to the right hand after cutting his right forearm on a glass in a suicidal attempt. Pt was stutured in ED, given Tdap vaccination, keflex and was evaulated by Plastic sx. Pt underwent laceration and tendon repair on 12/23/[address] Oneil. Pt seen by psychiatry who stated pt was stable for d/c, no need for further in-pt work up at this time, pt is not a harm to self or others. Plastics cleared pt for d/c on PO keflex and instructions to f/u in clinic as o/p. Pt to f/u w/PCP as o/p for outpt psych follow up. D/c diagnosis: Laceration of R. Forearm with tendon involvement: ?Suicidal Intent -pt with no suicidal/homicidal ideation at this time, seen by psych and cleared for dc home Polysubstance abuse Leukocytosis - resolved D/c planning >35 mins, D/w RN, plastic surgery and psych. Time of note doesn't reflect time of encounter. Discharge Medications New Medications: Docusate Sodium (Docusate Sodium) 100 Mg Tablet 100 MG ORAL TWICE A DAY for 3 Days, #10 TAB 0 Refills Cephalexin (Cephalexin) 500 Mg Tablet 500 MG ORAL FOUR TIMES A DAY for 7 Days, #28 TAB Hydrocodone/Acetaminophen 5-325* (Hydrocodone/Acetaminophen 5-325*) 1 Each Tablet 1 TAB ORAL Q6H PRN for 3 Days, #12 TAB Discharge Discharge Vital Signs Last Vital Signs Date Time Temp Pulse Resp B/P (MAP) Pulse Ox O2 Delivery O2 Flow Rate FiO2 12/23/19 14:15 68 20 133/63 100 Simple Mask 6 12/23/19 13:55 97.9 Discharge Disposition Patient was discharged to home w/instructions to f/u w/plastic sx as o/p. Cristo Boone M.D. Dec 23, 2019 14:24
--- NOTE | 2019-12-23 14:30 | Discharge Instructions ---
Discharge Instructions Discharge Instructions Follow up with: Call Dr. Oneil's office for f/u apt o/p in 1-2 days. Special Instructions no heavy lifting >5 lbs w/right arm until seen by plastic sx, Dr. Oneil. For Congestive Heart Failure Reminder Report to your physician any weight gain of 5 pounds or more in one week. Cristo Boone M.D. Dec 23, 2019 14:30
[2019-12-23] MEDS ORDERED: HYDROCODON-ACE1 EA15 ORAL (14:46)
[2019-12-23] MEDS ORDERED: KEFLEX500 M1 ORAL (14:46)
[2019-12-23] MEDS ORDERED: DOCUSATE SODIU100 M2 ORAL (15:13)
--- NOTE | 2019-12-23 16:44 | Consultation ---
DATE OF CONSULTATION: 12/23/2019 CONSULTING PHYSICIAN: Raffaele Oneil MD REASON FOR CONSULTATION: Left forearm laceration that involved laceration and injury of the extensor muscles of the right forearm. HISTORY OF PRESENT ILLNESS: The patient is a 24-year-old male with no previous past medical history, who presented to the emergency room on December 21, 2019, being very drunk and had attempted suicide. He tried to jump out of a second-story window to end his life, but he ended up cutting his right forearm on the broken glass of the window and did not jump. The patient denies any previous history of suicidal attempts. The patient admits to using marijuana, but no other illicit drugs. He is admitted for attempted suicide attempt as well as for detoxification for being very drunk. PAST MEDICAL HISTORY: None. PAST SURGICAL HISTORY: None. ALLERGIES TO MEDICATIONS: None. CURRENT MEDICATIONS: None. REVIEW OF SYSTEMS: He has pain and discomfort in the right forearm where he had sustained injury. PHYSICAL EXAMINATION: GENERAL: No acute distress, resting on the stretcher, in no apparent distress. Alert and oriented x3. HEENT: Head is normocephalic and atraumatic without any bony step-offs. He has some abrasions on the forehead. External ears, mouth, nose, and oral cavity appear normal. NECK: Supple. No JVD. No tenderness to palpation. RESPIRATORY: Clear to auscultation bilaterally. No wheezes, rales, or crackles. CARDIOVASCULAR SYSTEM: Normal sinus rhythm. Normal rate and rhythm. Normal S1, S2. ABDOMEN: Soft, nontender, nondistended. No guarding. No rigidity. EXTREMITIES: Range of motion intact throughout all extremities. Pulses 2+. Neurovascularly intact as well. The right forearm has a 4- to 5-cm laceration along the dorsum of the midforearm. ASSESSMENT AND PLAN: The patient is a 24-year-old male who has a forearm laceration that involves transection of some of his extensor muscles of the forearm. The wound was closed in the ED where the patient was combative and uncooperative. Now that he has sobered up, the plan is to take him to explore the right forearm wound and repair any muscles or tendons that are damaged. The case was discussed with the patient. He understands. All of his questions were answered. Arrangements will be made to repair his forearm, the muscle injuries, in the operating room. Raffaele Oneil M.D. DR: Nikhil JOB#: [id number] CC:
--- NOTE | 2019-12-23 17:55 | NUR ---
NURSE NOTES: Patient left 3E to home via [facility]. Patient received patient information packet, follow up appointment verified, belongings list verified, and questions were answered. Patient IV and ID wristband were removed.
[2019-12-23] MEDS ORDERED: Cephalexin 500mg cap ORAL SCH (18:00)
[2019-12-23] MEDS ORDERED: Bacitracin Oint 15gm Tube TOPIC SCH (18:00)
[2019-12-23] MEDS ORDERED: Docusate 100mg cap ORAL SCH (18:00)
--- NOTE | 2019-12-23 22:00 | Psych Consult Progress Note ---
Psychiatry Progress Note Psychiatry Progress Note Subjective the pt was happy and stated that he wanted go back to his mom reluctant to take psychotropics Allergies: Coded Allergies: No Known Allergies (Unverified , 12/21/19) Objective Data Height (Feet): 5 Height (Inches): 9.00 Weight (Pounds): 217 General Appearance: no apparent distress, alert Additional Comments: Alert and oriented times self, place, situation, and date. Mood is euthymic. Affect is full range, congruent with mood. Thought process, linear and goal oriented. Thought content, there is no suicidal or homicidal ideation. Cognition is intact. Insight and judgment is fair. ASSESSMENT: Seneca I Major depressive disorder. Cannabis dependence. Seneca II Deferred. Seneca III As above. Seneca IV Low. Seneca V 60. PLAN: 1. The patient is not an imminent danger to self or others. 2. The patient will benefit from psychotropic medication. Follow up with a psychiatrist. Umair Limon MD Dec 23, 2019 22:00
== END 2019-12-23 18:00 | disposition home or self-care (01) | DRG 502 ==
LOC: EDBD 18:46 → EMR 19:06 → 3E 21:05 → EDBEDREQ 12-22 05:05
DX: S56.521A Laceration of other extensor muscle, fascia and tendon at forearm level, right arm, initial encounter (principal); S51.811A Laceration without foreign body of right forearm, initial encounter; X83.8XXA Intentional self-harm by other specified means, initial encounter; Z23 Encounter for immunization; F10.10 Alcohol abuse, uncomplicated; F12.229 Cannabis dependence with intoxication, unspecified; F13.10 Sedative, hypnotic or anxiolytic abuse, uncomplicated; F41.9 Anxiety disorder, unspecified; F32.9 Major depressive disorder, single episode, unspecified
CPT/HCPCS: 36415; 71045; 80048; 80053; 80307; 81003; 82550; 85025; 86850; 86900; 86901; 90471; 90715; 93005; 94003; 94150; 96361; 96365; 96372; 99291; G0480; J2250; J2405; J2765; J7030; U0002